=== PATIENT | male | born 1955 | race African-American/Black ===

== ENCOUNTER 2018-03-05 02:58 | Inpatient (IN) | payer OTHER ==
[2018-03-05] MEDS: SOD CHLORIDE 0.9% 1,000 ML IV ×3 (03:24→19:15)
[2018-03-05] MEDS: DILTIAZEM 25 MG INJ IV (03:27)
[2018-03-05 03:47] LABS: ADD MAN DIFF? NO
[2018-03-05] MEDS: ONDANSETRON 4 MG INJ IV ×2 (03:49→07:58)
[2018-03-05] MEDS: morphine 4 MG/ML VIAL IV (03:49)
[2018-03-05 04:11] LABS: ALANINE AMINOTRANSFERASE 162 IU/L (13-69); ALBUMIN 3.4 g/dl (3.3-4.9); ALKALINE PHOSPHATASE 150 IU/L (42-121); ANION GAP 10 (5-13); ASPARTATE AMINO TRANSFERASE 88 IU/L (15-46); BILIRUBIN,INDIRECT 0.6 mg/dl (0-1.1); BILIRUBIN,TOTAL 0.6 mg/dl (0.2-1.3); BLOOD UREA NITROGEN 23 mg/dl (7-20); CALCIUM 9.3 mg/dl (8.4-10.2); CARBON DIOXIDE 26 mmol/L (21-31); CHLORIDE 105 mmol/L (97-110); CREATININE 1.44 mg/dl (0.61-1.24); Estimated GFR 50 mL/min (>60); GLUCOSE 208 mg/dl (70-220); POTASSIUM 4.6 mmol/L (3.5-5.1); SODIUM 141 mmol/L (135-144); TOTAL PROTEIN 6.8 g/dl (6.1-8.1)
[2018-03-05 04:13] LABS: WHITE BLOOD COUNT 8.5 10^3/ul (4.8-10.8)
[2018-03-05 04:13] LABS: BASOPHIL # 0.1 10^3/ul (0.0-0.1); BASOPHILS % 0.6 % (0.0-2.0); EOSINOPHILS # 0.1 10^3/ul (0.0-0.5); EOSINOPHILS % 0.6 % (0.0-7.0); HEMATOCRIT 45.3 % (42.0-52.0); HEMOGLOBIN 14.9 g/dl (14.0-18.0); LYMPHOCYTES % 23.4 % (15.0-51.0); MEAN CORPUSCULAR HEMOGLOBIN 28.4 pg (29.0-33.0); MEAN CORPUSCULAR HGB CONC 32.9 g/dl (32.0-37.0); MEAN CORPUSCULAR VOLUME 86.3 fl (82.0-101.0); MEAN PLATELET VOLUME 10.3 fl (7.4-10.4); MONOCYTES % 11.6 % (0.0-11.0); NEUTROPHIL # 5.4 10^3/ul (1.6-7.5); NEUTROPHILS % 63.6 % (39.0-77.0); PLATELET COUNT 446 10^3/UL (140-415); RED BLOOD COUNT 5.25 10^6/ul (4.70-6.10); RED CELL DISTRIBUTION WIDTH 13.7 % (11.5-14.5)
[2018-03-05 04:21] LABS: B-TYPE NATRIURETIC PEPTIDE 3090 PG/ML (0-125)
[2018-03-05 04:33] LABS: TROPONIN-I 0.146 ng/ml (0.000-0.120)
[2018-03-05 04:43] LABS: LIPASE 132 U/L (23-300)
[2018-03-05] MEDS: METOPROLOL 5 MG INJ IV (05:39)
[2018-03-05] MEDS: DILTIAZEM-D5W 125MG/125ML DRIP 125 ML IV ×3 (06:45→22:20)
[2018-03-05] MEDS: HYDROmorphONE 1 MG/ML SYG IV (07:58)
[2018-03-05] MEDS: SOD CHLORIDE 0.9% 100 ML (08:38)
[2018-03-05] MEDS: IODIXANOL LOCM 100 ML BTL (08:39)
[2018-03-05] MEDS ORDERED: ONDANSETRON 4 MG INJ IV (09:30)
[2018-03-05] MEDS ORDERED: ACETAMINOPHEN 650MG/20.3ML CUP PO (09:30)
[2018-03-05] MEDS: AMIODARONE 150MG/D5W BOLUS 100 ML IV (09:57)
[2018-03-05 11:12] LABS: ETHANOL < 10.0 mg/dl (0-0)
[2018-03-05 11:14] LABS: LACTIC ACID 1.7 mmol/L (0.5-2.0)
[2018-03-05 11:24] LABS: C-REACTIVE PROTEIN 3.4 mg/dl (0.0-0.9)
[2018-03-05] MEDS: DIGOXIN 500 MCG INJ IV ×5 (11:29→23:30)
[2018-03-05] MEDS: ENOXAPARIN 40 MG/0.4 ML SYG SC ×2 (11:31→11:38)
[2018-03-05 11:35] LABS: MAGNESIUM 1.9 mg/dl (1.7-2.5)
[2018-03-05] MEDS ORDERED: VANCOMYCIN IV PER PHARMACY XX (15:30)
[2018-03-05] MEDS: PIPER-TAZO 3.375 GM IV (PMX) 100 ML IVPB (17:23)
[2018-03-05 18:38] LABS: FREE T4 (FREE THYROXINE) 2.05 ng/dl (0.78-2.44)
[2018-03-05] MEDS: VANCOMYCIN 1.75 GM in SOD CHLORIDE 0.9% 500 ML IVPB (20:42)
[2018-03-06] MEDS: PIPER-TAZO 3.375 GM IV (PMX) 100 ML IVPB ×3 (02:14→21:41)
[2018-03-06] MEDS: SOD CHLORIDE 0.9% 1,000 ML IV ×3 (05:33→23:08)
[2018-03-06] MEDS: VANCOMYCIN 1 GM 250 ML IVPB ×2 (06:10→17:35)
[2018-03-06] MEDS: PANTOPRAZOLE 40 MG INJ IV (06:10)
[2018-03-06] MEDS: DILTIAZEM-D5W 125MG/125ML DRIP 125 ML IV (06:13)
[2018-03-06 06:24] LABS: ADD UMIC NO; UR ASCORBIC ACID NEGATIVE (NEGATIVE); UR BILIRUBIN (Dip) NEGATIVE (NEGATIVE); UR BLOOD (Dip) NEGATIVE (NEGATIVE); UR CLARITY CLEAR (CLEAR); UR COLOR YELLOW (YELLOW); UR GLUCOSE (Dip) NEGATIVE (NEGATIVE); UR KETONES (Dip) NEGATIVE (NEGATIVE); UR LEUKOCYTE ESTERASE (Dip) NEGATIVE Leu/ul (NEGATIVE); UR NITRITE (Dip) NEGATIVE (NEGATIVE); UR TOTAL PROTEIN (Dip) NEGATIVE (NEGATIVE); UR UROBILINOGEN (Dip) NEGATIVE (NEGATIVE)
[2018-03-06 07:06] LABS: AMPHETAMINE/METHAMPHETAMINE NEGATIVE (NEGATIVE); BARBITURATES NEGATIVE (NEGATIVE); BENZODIAZEPINES NEGATIVE (NEGATIVE); CANNABINOIDS NEGATIVE (NEGATIVE); COCAINE NEGATIVE (NEGATIVE)
[2018-03-06 07:09] LABS: OPIATES POSITIVE (NEGATIVE)
[2018-03-06] MEDS: DIGOXIN 500 MCG INJ IV (09:28)
[2018-03-06] MEDS: LORAZEPAM 2 MG INJ IV (11:29)
[2018-03-06] MEDS: morphine 2 MG INJ IV (11:30)
[2018-03-06] MEDS: LIDOCAINE 1% (MPF) 5 ML VIAL SC (12:33)
[2018-03-06 12:56] LABS: ADD MAN DIFF? NO; HAAIG REFLEX REFLEX FILED
[2018-03-06 13:00] LABS: BASOPHIL # 0.1 10^3/ul (0.0-0.1); BASOPHILS % 0.9 % (0.0-2.0); EOSINOPHILS # 0.2 10^3/ul (0.0-0.5); EOSINOPHILS % 2.2 % (0.0-7.0); HEMATOCRIT 40.8 % (42.0-52.0); HEMOGLOBIN 12.9 g/dl (14.0-18.0); LYMPHOCYTES # 0.8 10^3/ul (0.8-2.9); LYMPHOCYTES % 11.1 % (15.0-51.0); MEAN CORPUSCULAR HGB CONC 31.6 g/dl (32.0-37.0); MEAN CORPUSCULAR VOLUME 88.5 fl (82.0-101.0); MEAN PLATELET VOLUME 10.2 fl (7.4-10.4); MONOCYTE # 0.9 10^3/ul (0.3-0.9); MONOCYTES % 11.3 % (0.0-11.0); NEUTROPHIL # 5.6 10^3/ul (1.6-7.5); NEUTROPHILS % 74.2 % (39.0-77.0); PLATELET COUNT 346 10^3/UL (140-415); RED BLOOD COUNT 4.61 10^6/ul (4.70-6.10); RED CELL DISTRIBUTION WIDTH 13.7 % (11.5-14.5)
[2018-03-06 13:00] LABS: WHITE BLOOD COUNT 7.6 10^3/ul (4.8-10.8)
[2018-03-06] MEDS: LACTULOSE 30ML CUP PO ×3 (13:01→23:31)
[2018-03-06 13:21] LABS: PARTIAL THROMBOPLASTIN TIME 25.1 Sec (23.0-35.0); PROTIME 18.4 Sec (11.9-14.9); PT RATIO 1.4
[2018-03-06 13:27] LABS: CREATINE KINASE 62 IU/L (23-200)
[2018-03-06 13:28] LABS: PHOSPHORUS 2.9 mg/dl (2.5-4.9)
[2018-03-06 13:30] LABS: ALANINE AMINOTRANSFERASE 114 IU/L (13-69); ALBUMIN 2.5 g/dl (3.3-4.9); ALBUMIN/GLOBULIN RATIO 0.96; ALKALINE PHOSPHATASE 105 IU/L (42-121); ANION GAP 6 (5-13); ASPARTATE AMINO TRANSFERASE 35 IU/L (15-46); BILIRUBIN,INDIRECT 0.3 mg/dl (0-1.1); BILIRUBIN,TOTAL 0.3 mg/dl (0.2-1.3); BLOOD UREA NITROGEN 19 mg/dl (7-20); CALCIUM 8.9 mg/dl (8.4-10.2); CARBON DIOXIDE 25 mmol/L (21-31); CHLORIDE 105 mmol/L (97-110); CREATININE 1.27 mg/dl (0.61-1.24); Estimated GFR > 60 mL/min (>60); GLUCOSE 188 mg/dl (70-220); MAGNESIUM 1.8 mg/dl (1.7-2.5); POTASSIUM 4.8 mmol/L (3.5-5.1); SODIUM 136 mmol/L (135-144); TOTAL PROTEIN 5.1 g/dl (6.1-8.1)
[2018-03-06 13:38] LABS: CK INDEX 2.6; CK-MB 1.63 ng/ml (0.0-2.4); TROPONIN-I 0.089 ng/ml (0.000-0.120)
[2018-03-06 13:59] LABS: HEPATITIS B SURFACE ANTIGEN NEGATIVE (NEGATIVE)
[2018-03-06 14:16] LABS: HEPATITIS B CORE ANTIBODY NEGATIVE (NEGATIVE); HEPATITIS C VIRAL ANTIBODY NEGATIVE (NEGATIVE); HIV 1&2 ANTIBODY NEGATIVE (NEGATIVE)
[2018-03-06 15:57] LABS: IRON 22 ug/dl (35-150)
[2018-03-06 16:06] LABS: % IRON SATURATION 9 % SAT (22-52); TOTAL IRON BINDING CAPACITY 246 ug/dl (241-421)
[2018-03-06] MEDS: APIXABAN 5 MG TABLET PO (20:37)
[2018-03-07] MEDS: LORAZEPAM 2 MG INJ IV (04:30)
[2018-03-07 05:08] LABS: ADD MAN DIFF? NO
[2018-03-07 05:24] LABS: WHITE BLOOD COUNT 6.5 10^3/ul (4.8-10.8)
[2018-03-07 05:24] LABS: HEMATOCRIT 40.8 % (42.0-52.0); HEMOGLOBIN 12.9 g/dl (14.0-18.0); MEAN CORPUSCULAR VOLUME 88.9 fl (82.0-101.0); RED BLOOD COUNT 4.59 10^6/ul (4.70-6.10)
[2018-03-07 05:25] LABS: BASOPHILS % 0.5 % (0.0-2.0); EOSINOPHILS # 0.2 10^3/ul (0.0-0.5); EOSINOPHILS % 3.6 % (0.0-7.0); LYMPHOCYTES % 15.3 % (15.0-51.0); MEAN CORPUSCULAR HEMOGLOBIN 28.1 pg (29.0-33.0); MEAN CORPUSCULAR HGB CONC 31.6 g/dl (32.0-37.0); MEAN PLATELET VOLUME 10.4 fl (7.4-10.4); MONOCYTE # 0.7 10^3/ul (0.3-0.9); MONOCYTES % 10.4 % (0.0-11.0); NEUTROPHIL # 4.5 10^3/ul (1.6-7.5); NEUTROPHILS % 69.9 % (39.0-77.0); PLATELET COUNT 312 10^3/UL (140-415); RED CELL DISTRIBUTION WIDTH 13.6 % (11.5-14.5)
[2018-03-07] MEDS: LACTULOSE 30ML CUP PO ×4 (05:35→23:55)
[2018-03-07] MEDS: PANTOPRAZOLE 40 MG INJ IV (05:35)
[2018-03-07] MEDS: PIPER-TAZO 3.375 GM IV (PMX) 100 ML IVPB ×3 (05:36→21:36)
[2018-03-07] MEDS: VANCOMYCIN 1 GM 250 ML IVPB ×2 (05:36→17:31)
[2018-03-07 05:42] LABS: TRIGLYCERIDES 62 mg/dl (0-149)
[2018-03-07 05:43] LABS: ALANINE AMINOTRANSFERASE 91 IU/L (13-69); ALBUMIN 2.7 g/dl (3.3-4.9); ALKALINE PHOSPHATASE 101 IU/L (42-121); AMYLASE 63 U/L (11-123); ASPARTATE AMINO TRANSFERASE 25 IU/L (15-46); BILIRUBIN,INDIRECT 0.3 mg/dl (0-1.1); BILIRUBIN,TOTAL 0.3 mg/dl (0.2-1.3); LIPASE 231 U/L (23-300); TOTAL PROTEIN 5.6 g/dl (6.1-8.1)
[2018-03-07 05:44] LABS: DIGOXIN 0.6 ng/ml (1.0-2.0)
[2018-03-07 05:46] LABS: ALANINE AMINOTRANSFERASE 92 IU/L (13-69); ALBUMIN 2.7 g/dl (3.3-4.9); ALBUMIN/GLOBULIN RATIO 0.96; ALKALINE PHOSPHATASE 103 IU/L (42-121); ANION GAP 7 (5-13); ASPARTATE AMINO TRANSFERASE 24 IU/L (15-46); BILIRUBIN,INDIRECT 0.3 mg/dl (0-1.1); BILIRUBIN,TOTAL 0.3 mg/dl (0.2-1.3); BLOOD UREA NITROGEN 18 mg/dl (7-20); CALCIUM 8.8 mg/dl (8.4-10.2); CARBON DIOXIDE 26 mmol/L (21-31); CHLORIDE 107 mmol/L (97-110); CREATININE 1.28 mg/dl (0.61-1.24); Estimated GFR > 60 mL/min (>60); GLUCOSE 166 mg/dl (70-220); MAGNESIUM 1.9 mg/dl (1.7-2.5); POTASSIUM 4.6 mmol/L (3.5-5.1); SODIUM 140 mmol/L (135-144); TOTAL PROTEIN 5.5 g/dl (6.1-8.1)
[2018-03-07 05:50] LABS: B-TYPE NATRIURETIC PEPTIDE 2170 PG/ML (0-125)
[2018-03-07 05:53] LABS: VANCOMYCIN,TROUGH 13.1 ug/ml (10.0-20.0)
[2018-03-07 05:59] LABS: FREE T4 (FREE THYROXINE) 1.47 ng/dl (0.78-2.44)
[2018-03-07 06:12] LABS: THYROID STIMULATING HORMONE 0.494 MIU/L (0.465-4.680)
[2018-03-07] MEDS: DILTIAZEM-D5W 125MG/125ML DRIP 125 ML IV (07:11)
[2018-03-07] MEDS: POLYETHYLENE GLYCOL 17 GM PACKET PO (08:19)
[2018-03-07] MEDS: LISINOPRIL 5 MG TAB PO (08:19)
[2018-03-07] MEDS: MAGNESIUM SULFATE 2 GM/50 ML 50 ML IVPB (08:20)
[2018-03-07] MEDS: DIGOXIN 500 MCG INJ IV (08:20)
[2018-03-07] MEDS: APIXABAN 5 MG TABLET PO (08:20)
[2018-03-07] MEDS: SOD CHLORIDE 0.9% 1,000 ML IV (11:35)
[2018-03-07] MEDS ORDERED: morphine LIQ (10 MG/5 ML) CUP PO (18:00)
[2018-03-08] MEDS: LACTULOSE 30ML CUP PO ×3 (05:09→16:35)
[2018-03-08] MEDS: PIPER-TAZO 3.375 GM IV (PMX) 100 ML IVPB ×3 (05:09→22:22)
[2018-03-08] MEDS: VANCOMYCIN 1 GM 250 ML IVPB ×2 (05:09→17:24)
[2018-03-08] MEDS: PANTOPRAZOLE 40 MG INJ IV (05:10)
[2018-03-08 05:54] LABS: ADD MAN DIFF? NO
[2018-03-08 06:02] LABS: WHITE BLOOD COUNT 7.7 10^3/ul (4.8-10.8)
[2018-03-08 06:02] LABS: BASOPHILS % 0.5 % (0.0-2.0); EOSINOPHILS # 0.5 10^3/ul (0.0-0.5); EOSINOPHILS % 6.5 % (0.0-7.0); HEMATOCRIT 42.7 % (42.0-52.0); HEMOGLOBIN 13.8 g/dl (14.0-18.0); LYMPHOCYTES % 12.5 % (15.0-51.0); MEAN CORPUSCULAR HEMOGLOBIN 27.9 pg (29.0-33.0); MEAN CORPUSCULAR HGB CONC 32.3 g/dl (32.0-37.0); MEAN CORPUSCULAR VOLUME 86.3 fl (82.0-101.0); MONOCYTE # 0.7 10^3/ul (0.3-0.9); NEUTROPHIL # 5.5 10^3/ul (1.6-7.5); PLATELET COUNT 391 10^3/UL (140-415); RED BLOOD COUNT 4.95 10^6/ul (4.70-6.10); RED CELL DISTRIBUTION WIDTH 13.7 % (11.5-14.5)
[2018-03-08 06:17] LABS: PROTIME 18.4 Sec (11.9-14.9); PT RATIO 1.4
[2018-03-08 06:25] LABS: DIGOXIN 0.7 ng/ml (1.0-2.0)
[2018-03-08 06:42] LABS: ALANINE AMINOTRANSFERASE 100 IU/L (13-69); ALBUMIN 2.8 g/dl (3.3-4.9); ALBUMIN/GLOBULIN RATIO 0.87; ALKALINE PHOSPHATASE 134 IU/L (42-121); ANION GAP 8 (5-13); ASPARTATE AMINO TRANSFERASE 52 IU/L (15-46); BILIRUBIN,INDIRECT 0.4 mg/dl (0-1.1); BILIRUBIN,TOTAL 0.4 mg/dl (0.2-1.3); BLOOD UREA NITROGEN 16 mg/dl (7-20); CALCIUM 8.9 mg/dl (8.4-10.2); CARBON DIOXIDE 24 mmol/L (21-31); CHLORIDE 106 mmol/L (97-110); Estimated GFR > 60 mL/min (>60); GLUCOSE 244 mg/dl (70-220); POTASSIUM 4.7 mmol/L (3.5-5.1); SODIUM 138 mmol/L (135-144)
[2018-03-08] MEDS: LISINOPRIL 5 MG TAB PO (08:31)
[2018-03-08] MEDS: POLYETHYLENE GLYCOL 17 GM PACKET PO (08:31)
[2018-03-08] MEDS: DILTIAZEM-D5W 125MG/125ML DRIP 125 ML IV ×5 (08:35→14:30)
[2018-03-08] MEDS: DIGOXIN 500 MCG INJ IV (09:44)
[2018-03-08] MEDS: LORAZEPAM 2 MG INJ IV (17:24)
[2018-03-08] MEDS: FUROSEMIDE 20 MG INJ IV (18:28)
[2018-03-08] MEDS: APIXABAN 5 MG TABLET PO (20:11)
[2018-03-09] MEDS: DILTIAZEM-D5W 125MG/125ML DRIP 125 ML IV (03:04)
[2018-03-09] MEDS: PANTOPRAZOLE (EC) 40 MG TAB PO (05:33)
[2018-03-09] MEDS: PIPER-TAZO 3.375 GM IV (PMX) 100 ML IVPB ×3 (05:33→21:32)
[2018-03-09] MEDS: LACTULOSE 30ML CUP PO ×4 (05:34→17:08)
[2018-03-09 05:58] LABS: ADD MAN DIFF? NO
[2018-03-09 06:01] LABS: BASOPHIL # 0.1 10^3/ul (0.0-0.1); BASOPHILS % 0.6 % (0.0-2.0); EOSINOPHILS # 0.7 10^3/ul (0.0-0.5); EOSINOPHILS % 7.6 % (0.0-7.0); HEMATOCRIT 42.2 % (42.0-52.0); HEMOGLOBIN 13.9 g/dl (14.0-18.0); LYMPHOCYTES # 1.1 10^3/ul (0.8-2.9); LYMPHOCYTES % 12.6 % (15.0-51.0); MEAN CORPUSCULAR HEMOGLOBIN 28.1 pg (29.0-33.0); MEAN CORPUSCULAR HGB CONC 32.9 g/dl (32.0-37.0); MEAN CORPUSCULAR VOLUME 85.3 fl (82.0-101.0); MONOCYTE # 0.8 10^3/ul (0.3-0.9); MONOCYTES % 9.1 % (0.0-11.0); NEUTROPHIL # 6.1 10^3/ul (1.6-7.5); NEUTROPHILS % 69.9 % (39.0-77.0); PLATELET COUNT 403 10^3/UL (140-415); RED BLOOD COUNT 4.95 10^6/ul (4.70-6.10); RED CELL DISTRIBUTION WIDTH 13.8 % (11.5-14.5)
[2018-03-09 06:01] LABS: WHITE BLOOD COUNT 8.7 10^3/ul (4.8-10.8)
[2018-03-09 06:24] LABS: DIGOXIN 0.6 ng/ml (1.0-2.0)
[2018-03-09 06:27] LABS: ALANINE AMINOTRANSFERASE 81 IU/L (13-69); ALBUMIN 2.9 g/dl (3.3-4.9); ALBUMIN/GLOBULIN RATIO 0.96; ALKALINE PHOSPHATASE 115 IU/L (42-121); ANION GAP 7 (5-13); ASPARTATE AMINO TRANSFERASE 24 IU/L (15-46); BILIRUBIN,INDIRECT 0.6 mg/dl (0-1.1); BILIRUBIN,TOTAL 0.6 mg/dl (0.2-1.3); BLOOD UREA NITROGEN 18 mg/dl (7-20); CALCIUM 9.2 mg/dl (8.4-10.2); CARBON DIOXIDE 28 mmol/L (21-31); CHLORIDE 103 mmol/L (97-110); CREATININE 1.51 mg/dl (0.61-1.24); Estimated GFR 57 mL/min (>60); GLUCOSE 207 mg/dl (70-220); MAGNESIUM 1.8 mg/dl (1.7-2.5); POTASSIUM 4.5 mmol/L (3.5-5.1); SODIUM 138 mmol/L (135-144); TOTAL PROTEIN 5.9 g/dl (6.1-8.1)
[2018-03-09 06:29] LABS: LACTATE DEHYDROGENASE 590 IU/L (313-618)
[2018-03-09 06:29] LABS: PHOSPHORUS 3.4 mg/dl (2.5-4.9)
[2018-03-09] MEDS: VANCOMYCIN 1 GM 250 ML IVPB ×2 (06:31→18:49)
[2018-03-09 06:32] LABS: B-TYPE NATRIURETIC PEPTIDE 3040 PG/ML (0-125)
[2018-03-09] MEDS: LISINOPRIL 5 MG TAB PO (08:11)
[2018-03-09] MEDS: APIXABAN 5 MG TABLET PO ×2 (08:12→20:37)
[2018-03-09] MEDS: POLYETHYLENE GLYCOL 17 GM PACKET PO (08:13)
[2018-03-09] MEDS: DIGOXIN 500 MCG INJ IV (13:26)
[2018-03-09 18:10] LABS: VANCOMYCIN,TROUGH 13.8 ug/ml (10.0-20.0)
[2018-03-09] MEDS: FUROSEMIDE 20 MG INJ IV (21:32)
[2018-03-10] MEDS: PANTOPRAZOLE (EC) 40 MG TAB PO (05:09)
[2018-03-10] MEDS: PIPER-TAZO 3.375 GM IV (PMX) 100 ML IVPB ×3 (05:09→21:32)
[2018-03-10] MEDS: VANCOMYCIN 1 GM 250 ML IVPB ×2 (05:09→17:40)
[2018-03-10] MEDS: LACTULOSE 30ML CUP PO ×4 (05:09→17:20)
[2018-03-10 05:47] LABS: ADD MAN DIFF? NO
[2018-03-10 05:49] LABS: BASOPHILS % 0.4 % (0.0-2.0); EOSINOPHILS # 0.7 10^3/ul (0.0-0.5); EOSINOPHILS % 8.1 % (0.0-7.0); HEMATOCRIT 41.8 % (42.0-52.0); HEMOGLOBIN 13.6 g/dl (14.0-18.0); LYMPHOCYTES # 1.2 10^3/ul (0.8-2.9); LYMPHOCYTES % 12.9 % (15.0-51.0); MEAN CORPUSCULAR HEMOGLOBIN 27.6 pg (29.0-33.0); MEAN CORPUSCULAR HGB CONC 32.5 g/dl (32.0-37.0); MEAN PLATELET VOLUME 10.1 fl (7.4-10.4); MONOCYTE # 0.8 10^3/ul (0.3-0.9); NEUTROPHIL # 6.3 10^3/ul (1.6-7.5); NEUTROPHILS % 69.4 % (39.0-77.0); PLATELET COUNT 394 10^3/UL (140-415); RED BLOOD COUNT 4.92 10^6/ul (4.70-6.10)
[2018-03-10 06:08] LABS: ALANINE AMINOTRANSFERASE 69 IU/L (13-69); ALBUMIN 2.8 g/dl (3.3-4.9); ALBUMIN/GLOBULIN RATIO 0.87; ALKALINE PHOSPHATASE 114 IU/L (42-121); ANION GAP 7 (5-13); ASPARTATE AMINO TRANSFERASE 23 IU/L (15-46); BILIRUBIN,INDIRECT 0.7 mg/dl (0-1.1); BILIRUBIN,TOTAL 0.7 mg/dl (0.2-1.3); BLOOD UREA NITROGEN 15 mg/dl (7-20); CALCIUM 9.2 mg/dl (8.4-10.2); CARBON DIOXIDE 29 mmol/L (21-31); CHLORIDE 105 mmol/L (97-110); CREATININE 1.37 mg/dl (0.61-1.24); Estimated GFR > 60 mL/min (>60); GLUCOSE 207 mg/dl (70-220); SODIUM 141 mmol/L (135-144)
[2018-03-10 06:22] LABS: PHOSPHORUS 3.4 mg/dl (2.5-4.9)
[2018-03-10 06:22] LABS: MAGNESIUM 1.7 mg/dl (1.7-2.5)
[2018-03-10 07:35] LABS: POTASSIUM 4.2 mmol/L (3.5-5.1)
[2018-03-10 08:50] LABS: DIGOXIN 0.5 ng/ml (1.0-2.0)
[2018-03-10] MEDS: POLYETHYLENE GLYCOL 17 GM PACKET PO (09:00)
[2018-03-10] MEDS: APIXABAN 5 MG TABLET PO ×2 (09:49→20:27)
[2018-03-10] MEDS: LISINOPRIL 5 MG TAB PO (09:49)
[2018-03-10] MEDS: DIGOXIN 500 MCG INJ IV (14:42)
[2018-03-10] MEDS: FUROSEMIDE 20 MG INJ IV (16:12)
[2018-03-10] MEDS: ZOLPIDEM 5 MG TAB PO (20:27)
[2018-03-11 05:43] LABS: ADD MAN DIFF? NO; BASOPHILS % 0.4 % (0.0-2.0); EOSINOPHILS # 0.7 10^3/ul (0.0-0.5); EOSINOPHILS % 7.6 % (0.0-7.0); HEMATOCRIT 39.7 % (42.0-52.0); HEMOGLOBIN 13.2 g/dl (14.0-18.0); LYMPHOCYTES # 0.8 10^3/ul (0.8-2.9); LYMPHOCYTES % 9.4 % (15.0-51.0); MEAN CORPUSCULAR HEMOGLOBIN 28.3 pg (29.0-33.0); MEAN CORPUSCULAR HGB CONC 33.2 g/dl (32.0-37.0); MEAN CORPUSCULAR VOLUME 85.2 fl (82.0-101.0); MEAN PLATELET VOLUME 10.1 fl (7.4-10.4); MONOCYTE # 0.8 10^3/ul (0.3-0.9); MONOCYTES % 9.3 % (0.0-11.0); NEUTROPHIL # 6.5 10^3/ul (1.6-7.5); NEUTROPHILS % 72.9 % (39.0-77.0); PLATELET COUNT 365 10^3/UL (140-415); RED BLOOD COUNT 4.66 10^6/ul (4.70-6.10); RED CELL DISTRIBUTION WIDTH 13.8 % (11.5-14.5)
[2018-03-11] MEDS: LACTULOSE 30ML CUP PO ×4 (06:00→17:39)
[2018-03-11] MEDS: PIPER-TAZO 3.375 GM IV (PMX) 100 ML IVPB ×3 (06:17→21:50)
[2018-03-11] MEDS: VANCOMYCIN 1 GM 250 ML IVPB ×2 (06:18→17:40)
[2018-03-11] MEDS: PANTOPRAZOLE (EC) 40 MG TAB PO (06:18)
[2018-03-11 06:25] LABS: MAGNESIUM 1.7 mg/dl (1.7-2.5)
[2018-03-11 06:25] LABS: PHOSPHORUS 3.5 mg/dl (2.5-4.9)
[2018-03-11 06:29] LABS: ALANINE AMINOTRANSFERASE 61 IU/L (13-69); ALBUMIN 2.7 g/dl (3.3-4.9); ALBUMIN/GLOBULIN RATIO 0.87; ALKALINE PHOSPHATASE 105 IU/L (42-121); ANION GAP 7 (5-13); ASPARTATE AMINO TRANSFERASE 26 IU/L (15-46); BILIRUBIN,INDIRECT 0.7 mg/dl (0-1.1); BILIRUBIN,TOTAL 0.7 mg/dl (0.2-1.3); BLOOD UREA NITROGEN 18 mg/dl (7-20); CARBON DIOXIDE 28 mmol/L (21-31); CHLORIDE 104 mmol/L (97-110); CREATININE 1.38 mg/dl (0.61-1.24); Estimated GFR > 60 mL/min (>60); GLUCOSE 180 mg/dl (70-220); POTASSIUM 3.9 mmol/L (3.5-5.1); SODIUM 139 mmol/L (135-144); TOTAL PROTEIN 5.8 g/dl (6.1-8.1)
[2018-03-11] MEDS: LORAZEPAM 2 MG INJ IV (06:53)
[2018-03-11] MEDS: POLYETHYLENE GLYCOL 17 GM PACKET PO (08:43)
[2018-03-11] MEDS: LISINOPRIL 5 MG TAB PO (08:45)
[2018-03-11] MEDS: APIXABAN 5 MG TABLET PO ×2 (08:45→21:48)
[2018-03-11 13:37] LABS: DIGOXIN < 0.4 ng/ml (1.0-2.0)
[2018-03-11] MEDS: MAGNESIUM SULFATE 2 GM/50 ML 50 ML IVPB (14:10)
[2018-03-11] MEDS: SPIRONOLACTONE 25 MG TAB PO (17:40)
[2018-03-11] MEDS: FUROSEMIDE 20 MG INJ IV (17:40)
[2018-03-11] MEDS: ZOLPIDEM 5 MG TAB PO (21:48)
[2018-03-11] MEDS: DIGOXIN 0.125 MG TAB PO (21:49)
[2018-03-12] MEDS: LORAZEPAM 2 MG INJ IV (00:18)
[2018-03-12 05:42] LABS: ADD MAN DIFF? NO
[2018-03-12 05:44] LABS: BASOPHILS % 0.5 % (0.0-2.0); EOSINOPHILS # 0.6 10^3/ul (0.0-0.5); EOSINOPHILS % 7.3 % (0.0-7.0); HEMATOCRIT 39.7 % (42.0-52.0); HEMOGLOBIN 13.2 g/dl (14.0-18.0); LYMPHOCYTES # 1.3 10^3/ul (0.8-2.9); LYMPHOCYTES % 16.9 % (15.0-51.0); MEAN CORPUSCULAR HEMOGLOBIN 28.3 pg (29.0-33.0); MEAN CORPUSCULAR HGB CONC 33.2 g/dl (32.0-37.0); MEAN CORPUSCULAR VOLUME 85.2 fl (82.0-101.0); MEAN PLATELET VOLUME 9.9 fl (7.4-10.4); MONOCYTE # 0.7 10^3/ul (0.3-0.9); MONOCYTES % 9.2 % (0.0-11.0); NEUTROPHIL # 5.1 10^3/ul (1.6-7.5); NEUTROPHILS % 65.6 % (39.0-77.0); PLATELET COUNT 352 10^3/UL (140-415); RED BLOOD COUNT 4.66 10^6/ul (4.70-6.10); RED CELL DISTRIBUTION WIDTH 13.8 % (11.5-14.5)
[2018-03-12 05:44] LABS: WHITE BLOOD COUNT 7.8 10^3/ul (4.8-10.8)
[2018-03-12] MEDS: LACTULOSE 30ML CUP PO ×4 (06:00→18:06)
[2018-03-12 06:22] LABS: B-TYPE NATRIURETIC PEPTIDE 3090 PG/ML (0-125)
[2018-03-12 06:49] LABS: ALANINE AMINOTRANSFERASE 62 IU/L (13-69); ALBUMIN 2.9 g/dl (3.3-4.9); ALBUMIN/GLOBULIN RATIO 0.96; ALKALINE PHOSPHATASE 106 IU/L (42-121); ANION GAP 8 (5-13); ASPARTATE AMINO TRANSFERASE 36 IU/L (15-46); BILIRUBIN,INDIRECT 0.6 mg/dl (0-1.1); BILIRUBIN,TOTAL 0.6 mg/dl (0.2-1.3); BLOOD UREA NITROGEN 20 mg/dl (7-20); CALCIUM 8.9 mg/dl (8.4-10.2); CARBON DIOXIDE 29 mmol/L (21-31); CHLORIDE 101 mmol/L (97-110); CREATININE 1.32 mg/dl (0.61-1.24); Estimated GFR > 60 mL/min (>60); GLUCOSE 198 mg/dl (70-220); POTASSIUM 4.1 mmol/L (3.5-5.1); SODIUM 138 mmol/L (135-144); TOTAL PROTEIN 5.9 g/dl (6.1-8.1)
[2018-03-12] MEDS: VANCOMYCIN 1 GM 250 ML IVPB (06:52)
[2018-03-12] MEDS: FUROSEMIDE 20 MG INJ IV (06:53)
[2018-03-12] MEDS: PANTOPRAZOLE (EC) 40 MG TAB PO (06:54)
[2018-03-12] MEDS: PIPER-TAZO 3.375 GM IV (PMX) 100 ML IVPB ×3 (06:54→21:10)
[2018-03-12] MEDS: APIXABAN 5 MG TABLET PO ×2 (09:13→21:11)
[2018-03-12] MEDS: SPIRONOLACTONE 25 MG TAB PO (09:13)
[2018-03-12] MEDS: LISINOPRIL 5 MG TAB PO (09:15)
[2018-03-12] MEDS: POLYETHYLENE GLYCOL 17 GM PACKET PO (09:15)
[2018-03-12] MEDS: FUROSEMIDE 40 MG INJ IV (18:06)
[2018-03-12] MEDS: DIGOXIN 0.125 MG TAB PO (21:11)
[2018-03-13] MEDS: PIPER-TAZO 3.375 GM IV (PMX) 100 ML IVPB (05:33)
[2018-03-13] MEDS: PANTOPRAZOLE (EC) 40 MG TAB PO (05:33)
[2018-03-13] MEDS: LACTULOSE 30ML CUP PO ×5 (05:33→22:36)
[2018-03-13] MEDS: FUROSEMIDE 40 MG INJ IV (05:34)
[2018-03-13 06:26] LABS: ADD MAN DIFF? NO
[2018-03-13 06:31] LABS: BASOPHILS % 0.5 % (0.0-2.0); EOSINOPHILS # 0.7 10^3/ul (0.0-0.5); EOSINOPHILS % 7.5 % (0.0-7.0); HEMATOCRIT 40.3 % (42.0-52.0); HEMOGLOBIN 13.2 g/dl (14.0-18.0); LYMPHOCYTES # 1.3 10^3/ul (0.8-2.9); LYMPHOCYTES % 14.8 % (15.0-51.0); MEAN CORPUSCULAR HGB CONC 32.8 g/dl (32.0-37.0); MEAN CORPUSCULAR VOLUME 85.4 fl (82.0-101.0); MEAN PLATELET VOLUME 10.2 fl (7.4-10.4); MONOCYTE # 0.9 10^3/ul (0.3-0.9); MONOCYTES % 10.5 % (0.0-11.0); NEUTROPHIL # 5.9 10^3/ul (1.6-7.5); NEUTROPHILS % 66.5 % (39.0-77.0); PLATELET COUNT 352 10^3/UL (140-415); RED BLOOD COUNT 4.72 10^6/ul (4.70-6.10); RED CELL DISTRIBUTION WIDTH 13.8 % (11.5-14.5)
[2018-03-13 06:31] LABS: WHITE BLOOD COUNT 8.8 10^3/ul (4.8-10.8)
[2018-03-13 07:10] LABS: MAGNESIUM 1.9 mg/dl (1.7-2.5)
[2018-03-13 07:37] LABS: ANION GAP 6 (5-13); BLOOD UREA NITROGEN 23 mg/dl (7-20); CALCIUM 9.1 mg/dl (8.4-10.2); CARBON DIOXIDE 30 mmol/L (21-31); CHLORIDE 101 mmol/L (97-110); CREATININE 1.32 mg/dl (0.61-1.24); Estimated GFR > 60 mL/min (>60); GLUCOSE 202 mg/dl (70-220); SODIUM 137 mmol/L (135-144)
[2018-03-13] MEDS: POLYETHYLENE GLYCOL 17 GM PACKET PO (09:00)
[2018-03-13] MEDS: SPIRONOLACTONE 25 MG TAB PO (09:03)
[2018-03-13] MEDS: APIXABAN 5 MG TABLET PO ×2 (09:04→20:31)
[2018-03-13] MEDS: LISINOPRIL 5 MG TAB PO (09:05)
[2018-03-13] MEDS: MAGNESIUM SULFATE 2 GM/50 ML 50 ML IVPB (09:40)
[2018-03-13 13:07] LABS: PROCALCITONIN <0.10 ng/mL (<0.10)
[2018-03-13] MEDS: FUROSEMIDE 40 MG TAB PO (17:36)
[2018-03-13] MEDS: AMOXICILLIN/CLAV 875 MG TAB PO (20:31)
[2018-03-13] MEDS: DIGOXIN 0.125 MG TAB PO (20:32)
[2018-03-13] MEDS: LORAZEPAM 2 MG INJ IV (22:31)
[2018-03-14] MEDS: LACTULOSE 30ML CUP PO ×2 (06:00→11:47)
[2018-03-14 06:02] LABS: ADD MAN DIFF? NO
[2018-03-14 06:08] LABS: BASOPHIL # 0.1 10^3/ul (0.0-0.1); BASOPHILS % 0.9 % (0.0-2.0); EOSINOPHILS # 0.5 10^3/ul (0.0-0.5); EOSINOPHILS % 6.3 % (0.0-7.0); HEMATOCRIT 40.3 % (42.0-52.0); HEMOGLOBIN 13.2 g/dl (14.0-18.0); LYMPHOCYTES # 1.5 10^3/ul (0.8-2.9); LYMPHOCYTES % 19.2 % (15.0-51.0); MEAN CORPUSCULAR HEMOGLOBIN 27.9 pg (29.0-33.0); MEAN CORPUSCULAR HGB CONC 32.8 g/dl (32.0-37.0); MEAN CORPUSCULAR VOLUME 85.2 fl (82.0-101.0); MONOCYTE # 0.8 10^3/ul (0.3-0.9); MONOCYTES % 10.1 % (0.0-11.0); NEUTROPHILS % 63.1 % (39.0-77.0); PLATELET COUNT 368 10^3/UL (140-415); RED BLOOD COUNT 4.73 10^6/ul (4.70-6.10); RED CELL DISTRIBUTION WIDTH 14.1 % (11.5-14.5)
[2018-03-14 06:08] LABS: WHITE BLOOD COUNT 7.9 10^3/ul (4.8-10.8)
[2018-03-14] MEDS: PANTOPRAZOLE (EC) 40 MG TAB PO (06:18)
[2018-03-14] MEDS: FUROSEMIDE 40 MG TAB PO (06:18)
[2018-03-14 06:30] LABS: DIGOXIN 0.6 ng/ml (1.0-2.0)
[2018-03-14 07:01] LABS: ALANINE AMINOTRANSFERASE 66 IU/L (13-69); ALBUMIN 2.9 g/dl (3.3-4.9); ALBUMIN/GLOBULIN RATIO 0.85; ALKALINE PHOSPHATASE 130 IU/L (42-121); ANION GAP 8 (5-13); ASPARTATE AMINO TRANSFERASE 35 IU/L (15-46); BILIRUBIN,INDIRECT 0.3 mg/dl (0-1.1); BILIRUBIN,TOTAL 0.3 mg/dl (0.2-1.3); BLOOD UREA NITROGEN 22 mg/dl (7-20); CALCIUM 9.1 mg/dl (8.4-10.2); CARBON DIOXIDE 33 mmol/L (21-31); CHLORIDE 99 mmol/L (97-110); CREATININE 1.27 mg/dl (0.61-1.24); Estimated GFR > 60 mL/min (>60); GLUCOSE 218 mg/dl (70-220); POTASSIUM 3.9 mmol/L (3.5-5.1); SODIUM 140 mmol/L (135-144); TOTAL PROTEIN 6.3 g/dl (6.1-8.1)
[2018-03-14 07:06] LABS: B-TYPE NATRIURETIC PEPTIDE 2700 PG/ML (0-125)
[2018-03-14] MEDS: POLYETHYLENE GLYCOL 17 GM PACKET PO (09:00)
[2018-03-14] MEDS: AMOXICILLIN/CLAV 875 MG TAB PO (09:17)
[2018-03-14] MEDS: SPIRONOLACTONE 25 MG TAB PO (09:18)
[2018-03-14] MEDS: APIXABAN 5 MG TABLET PO (09:18)
[2018-03-14] MEDS: LISINOPRIL 5 MG TAB PO (09:34)
== END 2018-03-14 16:08 | disposition home or self-care (01) | DRG 280 ==
LOC: E/R 02:58 → 6WM 03-07 16:45 → ICU 09:06
PROC: 02H633Z Insertion of Infusion Device into Right Atrium, Percutaneous Approach (ICD-10-PCS; principal; 2018-03-06)
DX: I48.92 Unspecified atrial flutter (principal); K85.90 Acute pancreatitis without necrosis or infection, unspecified; I21.4 Non-ST elevation (NSTEMI) myocardial infarction; J18.9 Pneumonia, unspecified organism; I50.23 Acute on chronic systolic (congestive) heart failure; N17.9 Acute kidney failure, unspecified; K86.1 Other chronic pancreatitis; I44.1 Atrioventricular block, second degree; R06.00 Dyspnea, unspecified; R59.0 Localized enlarged lymph nodes; R16.0 Hepatomegaly, not elsewhere classified; I34.0 Nonrheumatic mitral (valve) insufficiency; I48.91 Unspecified atrial fibrillation; R59.1 Generalized enlarged lymph nodes; I42.8 Other cardiomyopathies; I42.6 Alcoholic cardiomyopathy
CPT/HCPCS: 36569; 71045; 71250; 71275; 74176; 74181; 76604; 76937; 80048; 80053; 80076; 80162; 80202; 80307; 81003; 82150; 82550; 82553; 82728; 82787; 83540; 83605; 83615; 83625; 83690; 83735; 83880; 84100; 84145; 84439; 84443; 84478; 84484; 85025; 85610; 85651; 85730; 86140; 86635; 86703; 86704; 86709; 86803; 87040; 87081; 87340; 93005; 93306